=== PATIENT | female | born 1980 | race Caucasian/White ===

== ENCOUNTER → 2017-03-20 | Outpatient (CLI) | payer OTHER ==
[~2017-03-20] MED LIST: OXYC-57 PO
[2017-03-20 17:19] LABS: URINE APPEARANCE CLEAR (CLEAR); URINE BILIRUBIN NEG (NEG); URINE COLOR YELLOW; URINE NITRITE NEG (NEG); URINE SPECIFIC GRAVITY 1.019 (1.000-1.030); UROBILINOGEN NEG (NEG)
[2017-03-20 17:23] LABS: MANUAL MICROSCOPIC REQUIRED? NO; REVIEW REQ? YES
== END | disposition home or self-care (01) ==
LOC: C.LABSPEC 16:43
PROVIDERS: ATTEND Obstetrics & Gynecology
DX: O09.521 Supervision of elderly multigravida, first trimester (principal); Z3A.00 Weeks of gestation of pregnancy not specified

== ENCOUNTER 2017-03-24 16:25 | Emergency (ER) | payer OTHER ==
[~2017-03-24] VITALS: Ht 157.5 cm; Wt 55.5 kg
[2017-03-24] MEDS ORDERED: IBUPROFEN 200 MG TAB PO STA (16:28)
--- NOTE | 2017-03-24 16:32 | EMERGENCY ROOM VISIT NOTE ---
History First contact with patient: 16:28 Stated Complaint: abd pain History of Present Illness The patient is a 36 year old female who presents to the Emergency Room with complaints of lower abdominal cramping and vaginal bleeding that started 2 days ago. The patient is 11 weeks . She is . The patient reports passing a heavy clot earlier today. She is soaking a pad approximately every 2 hours. No other associated symptoms such as fever or chills, dizziness, lightheadedness, pain in her chest or difficulty breathing. Review of Systems 10 system review performed and negative unless noted in HPI or below Past Medical/Surgical History Otherwise healthy Social History Smoking Status: Never Smoker Alcohol Use: occasionally Marital Status: Housing Status: lives with family Occupation Status: employed Current/Historical Medications Scheduled PRN Oxycodone/Acetaminophen 5MG/325MG (Percocet 5MG/325MG), 1 TAB PO Q4H PRN for Pain Physical Exam Vital Signs Date Time Temp Pulse Resp B/P (MAP) Pulse Ox O2 Delivery O2 Flow Rate FiO2 03/24/17 18:35 72 18 112/72 98 Room Air 03/24/17 17:17 36.7 77 14 94/63 98 Room Air Physical Exam VITALS: Vitals are noted on the nurse's note and reviewed by myself. Vital signs stable. GENERAL: 36-year-old female, in no acute distress, nondiaphoretic, well- developed well-nourished. SKIN: The skin was without rashes, erythema, edema, or bruising. HEAD: Normocephalic atraumatic. HEART: Regular rate and rhythm without murmurs gallops or rubs. LUNGS: Clear to auscultation bilaterally without wheezes, rales or rhonchi. No accessory muscle use. ABDOMEN: Positive bowel sounds x 4.Soft, significant tenderness to palpation in the suprapubic region, without organomegaly. No guarding or rebound tenderness. MUSCULOSKELETAL: No muscle atrophy, erythema, or edema noted. Strength 5/5 throughout. NEURO: Patient was alert and oriented to person place and time. Normal sensation to touch. No focal neurological deficits. Medical Decision & Procedures ER Provider Diagnostic Interpretation: Transvaginal ultrasound IMPRESSION: 1. A single intrauterine gestational sac. There is a pole which measures 4.8 mm. No heart rate detected at this time. This could be within the range of normal limits given the size of the pole. However, the gestational sac is low-lying and is concerning for a spontaneous in progress. Follow-up beta-hCG and/or pelvic ultrasound is recommended for further evaluation. 2. Left ovarian cyst which favors a corpus luteum. 3. Mildly enlarged yolk sac at 7 mm. Electronically signed by: Manoj Silverman M.D. 03/24/2017 6:42 PM Dictated Date/Time: 03/24/2017 6:36 PM The status of this report is Signed. Draft = Not yet reviewed or approved by Radiologist. Signed = Reviewed and approved by Radiologist. <AttendingPhy></AttendingPhy> <FamilyPhy>Belle Chi, DO</FamilyPhy> < PrimaryPhy>Belle Chi, DO</PrimaryPhy> <UnitNumber>[id number]</ UnitNumber> <VisitNumber>[id number]</VisitNumber> Laboratory Results 03/24/17 17:34 Red Blood Count 4.11, Mean Corpuscular Volume 87.8, Mean Corpuscular Hemoglobin 29.7, Mean Corpuscular Hemoglobin Concent 33.8, Mean Platelet Volume 9.9, Neutrophils (%) (Auto) 69.1, Lymphocytes (%) (Auto) 22.3, Monocytes (%) (Auto) 6.9, Eosinophils (%) (Auto) 1.2, Basophils (%) (Auto) 0.3, Neutrophils # (Auto) 7.06, Lymphocytes # (Auto) 2.28, Monocytes # (Auto) 0.71, Eosinophils # (Auto) 0.12, Basophils # (Auto) 0.03 03/24/17 17:34 Test 03/24/17 17:34 White Blood Count 10.22 K/uL (4.8-10.8) Red Blood Count 4.11 M/uL (4.2-5.4) Hemoglobin 12.2 g/dL (12.0-16.0) Hematocrit 36.1 % (37-47) Mean Corpuscular Volume 87.8 fL (80-100) Mean Corpuscular Hemoglobin 29.7 pg (25-34) Mean Corpuscular Hemoglobin Concent 33.8 g/dl (32-36) Platelet Count 225 K/uL (130-400) Mean Platelet Volume 9.9 fL (7.4-10.4) Neutrophils (%) (Auto) 69.1 % Lymphocytes (%) (Auto) 22.3 % Monocytes (%) (Auto) 6.9 % Eosinophils (%) (Auto) 1.2 % Basophils (%) (Auto) 0.3 % Neutrophils # (Auto) 7.06 K/uL (1.4-6.5) Lymphocytes # (Auto) 2.28 K/uL (1.2-3.4) Monocytes # (Auto) 0.71 K/uL (0.11-0.59) Eosinophils # (Auto) 0.12 K/uL (0-0.5) Basophils # (Auto) 0.03 K/uL (0-0.2) RDW Standard Deviation 39.4 fL (36.4-46.3) RDW Coefficient of Variation 12.3 % (11.5-14.5) Immature Granulocyte % (Auto) 0.2 % Immature Granulocyte # (Auto) 0.02 K/uL (0.00-0.02) Anion Gap 7.0 mmol/L (3-11) Est Creatinine Clear Calc Drug Dose 91.0 ml/min Estimated GFR () 130.1 Estimated GFR (Non- 112.3 BUN/Creatinine Ratio 11.2 (10-20) Calcium Level 8.8 mg/dl (8.5-10.1) Total Bilirubin 0.5 mg/dl (0.2-1) Aspartate Amino Transf (AST/SGOT) 18 U/L (15-37) Alanine Aminotransferase (ALT/SGPT) 31 U/L (12-78) Alkaline Phosphatase 63 U/L (45-117) Total Protein 7.3 gm/dl (6.4-8.2) Albumin 4.0 gm/dl (3.4-5.0) Globulin 3.3 gm/dl (2.5-4.0) Albumin/Globulin Ratio 1.2 (0.9-2) Human Chorionic Gonadotropin, Quant 33073 mIU/mL Medications Administered Medications (Trade) Dose Ordered Sig/Sergey Route Start Time Stop Time Status Last Admin Dose Admin Ibuprofen (Advil Tab) 800 mg NOW STAT PO 03/24/17 16:28 03/24/17 16:31 DC 03/24/17 17:16 800 MG Oxycodone/ Acetaminophen (Percocet 5/ 325MG Home Pack) 1 homepack UD ONCE PO 03/24/17 19:15 03/24/17 19:21 DC 03/24/17 19:21 1 HOMEPACK ED Course Patient was seen and examined Vital signs including blood pressure were reviewed medications list was verified with patient Labs were obtained, and a saline lock was established The patient was given Motrin 800 mg for pain Imaging was performed and reviewed The patient was reassessed. Her pain was slightly improved. We thoroughly reviewed her workup. The case was discussed with Dr. Graf from [facility]. The case was also discussed with my supervising physician, Dr. Alvarez, who is in agreement with my plan. The patient was given a whole pack of Percocet I reviewed discharge instructions the patient. They voiced understanding and had no further questions. Medical Decision Differential diagnosis: Threatened spontaneous , complete versus incomplete spontaneous : Missed , subchorionic hemorrhage, ectopic , This patient is a pleasant 36-year-old female , 11 weeks presents to the emergency department with 2 days of vaginal bleeding and lower abdominal cramping. On exam, she was nontoxic in appearance. Her vital signs were stable. She did have tenderness in the suprapubic region. Labs reveal a decreasing hCG quantitative value. An ultrasound confirms a gestational sac, however no heart tones were noted. The sac was also low lying, concerning for a miscarriage. The patient is passing a few heavy clots. Her H& H is stable. Her pain was well-controlled. The case was discussed with OB/ [employer]. I believe she is stable to be discharged home with close follow-up. She will call her [facility] in 3 days for follow-up. She was instructed to follow pelvic rest. She will take ibuprofen for pain and Percocet for severe pain. She agrees to return to the emergency department immediately with any worsening symptoms such as heavy vaginal bleeding or worsening pain. This chart was completed in part utilizing [employer] Voice Recognition software. Attempts were made to minimize the grammatical errors, random word insertions, pronoun errors and incomplete sentences. Any formal questions or concerns about the content, text or information contained within the body of this dictation should be directly addressed to the provider for clarification. Medication Reconcilliation Current Medication List: was personally reviewed by me Blood Pressure Screening Patient's blood pressure: Normal blood pressure Consults Consulting Physician: Dr. Graf Impression Primary Impression: Spontaneous in first trimester Departure Information Dispostion Home / Self-Care Condition FAIR Prescriptions Oxycodone/Acetaminophen 5MG/325MG (PERCOCET 5MG/325MG) Tab 1 TAB PO Q4H Y for Pain, #15 TAB For Initial Treatment Prov: Zari Jurado PA-C 03/24/17 Referrals Belle Chi DO (PCP) Maria M Sanchez MD Additional Instructions You were evaluated in the emergency department today for a possible miscarriage. An ultrasound was performed. No heartbeat was detected, which is likely consistent with a miscarriage in process. Ibuprofen 800 mg every 8 hours as needed Percocet 1-2 tabs every 4 hours for severe pain. Do not drink alcohol or drive while taking this medication. This may be taken with ibuprofen, but avoid Tylenol. A stool softener such as Colace is also recommended as this medication may cause constipation Pelvic rest. Please nothing in the vagina until follow-up with [facility]. Please use pads instead of tampons. No sexual activity. Please follow-up with the [facility]OLOG[facility] by Saturday. Please do not hesitate to return to the emergency department with any worsening or concerning symptoms such as severe bleeding (more than 1 pad per hour) or severe pain.
[2017-03-24 17:17] VITALS: TEMP 36.7; Ht 157.5 cm; Wt 55.5 kg
[2017-03-24 17:47] LABS: BASO % 0.3 %; BASO ABS # 0.03 K/uL (0-0.2); COMPLETE YES; EOS % 1.2 %; HEMATOCRIT 36.1 % (37-47); IG% 0.2 %; LYMPH % 22.3 %; LYMPH ABS # 2.28 K/uL (1.2-3.4); MEAN CELL VOLUME 87.8 fL (80-100); MEAN CORPUSCULAR HEMOGLOBIN 29.7 pg (25-34); MEAN CORPUSCULAR HGB CONC 33.8 g/dl (32-36); MEAN PLATELET VOLUME 9.9 fL (7.4-10.4); MONO % 6.9 %; NEUT % 69.1 %; PLATELET COUNT 225 K/uL (130-400); RED BLOOD COUNT 4.11 M/uL (4.2-5.4); WHITE BLOOD COUNT 10.22 K/uL (4.8-10.8)
[2017-03-24 18:04] LABS: BUN/CREATININE RATIO 11.2 (10-20); CALCIUM 8.8 mg/dl (8.5-10.1); CREATININE 0.67 mg/dl (0.60-1.20); POTASSIUM 3.7 mmol/L (3.5-5.1)
[2017-03-24 18:06] LABS: ALB/GLOB RATIO 1.2 (0.9-2)
[2017-03-24 18:35] VITALS: BP 112/72; PULSE 72; O2SAT 98
--- NOTE | 2017-03-24 18:43 | DIAGNOSTIC IMAGING REPORT ---
TRANSVAGINAL CLINICAL HISTORY: heavy bleeding ? Miscarriage COMPARISON STUDY: None. FINDINGS: The uterus measures 10.4 x 6.3 x 8.2 cm. There is a 1.7 cm cyst within the left ovary. This favors a corpus luteum. Normal color flow within the bilateral ovaries. There is a single intrauterine gestational sac with a mean sac diameter of 1.73 cm. There are is a pole which measures 4.8 mm. No heart rate detected at this time. The yolk sac is mildly enlarged at 7 mm. The gestational sac is low-lying within the mid endometrium and extending into the lower uterine segment. The remaining portions of the endometrium are thickened and heterogeneous measuring up to 1.8 cm in thickness. Trace pelvic free fluid. IMPRESSION: 1. A single intrauterine gestational sac. There is a pole which measures 4.8 mm. No heart rate detected at this time. This could be within the range of normal limits given the size of the pole. However, the gestational sac is low-lying and is concerning for a spontaneous in progress. Follow-up beta-hCG and/or pelvic ultrasound is recommended for further evaluation. 2. Left ovarian cyst which favors a corpus luteum. 3. Mildly enlarged yolk sac at 7 mm. Electronically signed by: Manoj Silverman M.D. 03/24/2017 6:42 PM Dictated Date/Time: 03/24/2017 6:36 PM
[2017-03-24] MEDS ORDERED: OXYC-57 PO (19:03)
[2017-03-24] MEDS ORDERED: PERCOCET HOME PACK PO ONE (19:15)
== END 2017-03-24 19:22 | disposition home or self-care (01) ==
LOC: EDBD 16:25 → C.EDC 16:26
DX: O03.9 Complete or unspecified spontaneous abortion without complication (principal); Z3A.11 11 weeks gestation of pregnancy

== ENCOUNTER → 2017-03-26 | Outpatient (CLI) | payer OTHER | END | disposition home or self-care (01) | LOC: C.LABSPEC 17:09 | PROVIDERS: ATTEND Obstetrics & Gynecology | DX: O03.9 Complete or unspecified spontaneous abortion without complication (principal); Z3A.00 Weeks of gestation of pregnancy not specified ==

== ENCOUNTER → 2017-04-03 | Outpatient (CLI) | payer OTHER | END | disposition home or self-care (01) | LOC: C.LABSPEC 13:43 | PROVIDERS: ATTEND Obstetrics & Gynecology | DX: O03.9 Complete or unspecified spontaneous abortion without complication (principal) ==

== ENCOUNTER → 2017-05-14 | Outpatient (CLI) | payer OTHER | END | disposition home or self-care (01) | LOC: C.LAB 10:56 | PROVIDERS: ATTEND Obstetrics & Gynecology | DX: O03.9 Complete or unspecified spontaneous abortion without complication (principal) ==

== ENCOUNTER → 2017-08-12 | Outpatient (CLI) | payer OTHER | END | disposition home or self-care (01) | LOC: C.PAPS 14:13 | PROVIDERS: ATTEND Obstetrics & Gynecology | DX: Z01.419 Encounter for gynecological examination (general) (routine) without abnormal findings (principal) ==